=== PATIENT | male | born 1930 | race Caucasian/White ===

== ENCOUNTER 2017-02-22 11:14 | Observation (INO) | payer MEDICARE, BC ==
[~2017-02-22] VITALS: Ht 170.2 cm; Wt 97.4 kg
[2017-02-22] VITALS (10 sets, daily range): BP systolic 117–146; BP diastolic 57–86; PULSE 77–101; TEMP 97.8–98.2
[2017-02-22] MEDS ORDERED: NORVASC 10MG10 MG PO (13:47)
[2017-02-22] MEDS ORDERED: COREG 25MG25 MG/TAB PO (13:48)
[2017-02-22] MEDS ORDERED: PRINIVIL40 MG PO (13:48)
[2017-02-22] MEDS ORDERED: GLUCOPHAGE500 MG/TAB PO (13:49)
[2017-02-22] MEDS ORDERED: KLOR-CON 1010 MEQ PO (13:50)
[2017-02-22] MEDS ORDERED: XARELTO20 MG PO (13:51)
[2017-02-22] MEDS ORDERED: LIPITOR 80MG80 MG PO (13:51)
[2017-02-22] MEDS ORDERED: ASPIRIN 81M81 MG/TA2 PO (13:52)
[2017-02-22] MEDS ORDERED: MULTIPLE VITAMI1 CAP PO (13:52)
[2017-02-22] MEDS ORDERED: COLACE 100100 MG/CAP PO (13:53)
[2017-02-22] MEDS ORDERED: RT SPIRIVA18 MCG IH (13:54)
[2017-02-23 06:14] VITALS: BP 127/60; PULSE 79; TEMP 98
[2017-02-23 07:22] LABS: MEAN CELL VOLUME 91 fl (80.0-100.0); MEAN CORPUSCULAR HGB CONC 32 g/dl (33.0-37.0); MEAN PLATELET VOLUME 11.6 fl (7.4-10.4); PLATELET COUNT 189 K/mm3 (130-400); RED BLOOD COUNT 3.38 M/mm3 (4.20-5.60); REDCELL DISTRIBUTION WIDTH-CV 15.9 % (11.5-14.5); WHITE BLOOD COUNT 9.1 K/mm3 (4.8-10.8)
[2017-02-23 07:32] LABS: HEMATOCRIT 30.9 % (42.0-52.0); HEMOGLOBIN 9.9 g/dl (13.5-18.0); MEAN CORPUSCULAR HEMOGLOBIN 29 pg (27.0-31.0)
[2017-02-23 10:11] VITALS: BP 95/38; PULSE 57; TEMP 97.8
[2017-02-23 14:00] VITALS: BP 99/48; PULSE 62; TEMP 98.2
[2017-02-23 17:11] VITALS: BP 138/59; PULSE 80
[2017-02-23 22:06] VITALS: BP 121/63; PULSE 80; TEMP 98.5
[2017-02-24 05:17] VITALS: BP 118/57; PULSE 79; TEMP 97.8
[2017-02-24 10:13] VITALS: BP 119/54; PULSE 78; TEMP 98.2
[2017-02-24 12:57] VITALS: BP 132/46; PULSE 84; TEMP 97.6
[2017-02-24 17:32] VITALS: BP 141/81; PULSE 78; TEMP 98.1
[2017-02-24 21:47] VITALS: BP 114/46; PULSE 55; TEMP 98.9
[2017-02-25 06:05] VITALS: BP 136/57; PULSE 80; TEMP 97.7
[2017-02-25 09:38] VITALS: BP 123/50; PULSE 53; TEMP 97.8
== END 2017-02-25 10:10 | disposition home or self-care (01) ==
LOC: SDCO 11:14 → SURG 16:02 → SDCO 02-23 13:40 → SURG 02-23 13:40
PROVIDERS: Urology
DX: N40.1 Benign prostatic hyperplasia with lower urinary tract symptoms (principal); R33.8 Other retention of urine; N39.45 Continuous leakage; R60.9 Edema, unspecified; I48.91 Unspecified atrial fibrillation; J44.9 Chronic obstructive pulmonary disease, unspecified; E78.5 Hyperlipidemia, unspecified; I10 Essential (primary) hypertension; G47.30 Sleep apnea, unspecified; Z87.891 Personal history of nicotine dependence; Z80.41 Family history of malignant neoplasm of ovary; Z90.49 Acquired absence of other specified parts of digestive tract
CPT/HCPCS: OP; C1769; G0378; J0690; J2250; J2704; J7120